=== PATIENT | male | born 1985 | race American Indian/Alaskan Native ===

== ENCOUNTER 2019-04-08 21:53 | Emergency (ER) | payer MEDICARE ==
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
[2019-04-08 22:20] VITALS: BP 126/86
[2019-04-08] MEDS ORDERED: XYLOCAINE 1% MPF 5 mL INFILTRATI ONE (23:49)
[2019-04-08] MEDS ORDERED: BOOSTRIX IM ONE (23:49)
[2019-04-08] MEDS ORDERED: NORCO 5/325 PO ONE (23:49)
--- NOTE | 2019-04-09 01:53 | XRay Report ---
Right hand, 2 views INDICATION: Pain following injury today FINDINGS: The joint space is maintained. There is no fracture or dislocation. No spurring or arthriti c change. No bone lesion or periostitis. No significant abnormality. IMPRESSION: Negative study Signer Name: Flavio Winters MD Signed: 04/09/2019 1:49 AM Workstation Name: [id number]
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
== END 2019-04-09 02:11 | disposition home or self-care (01) ==
LOC: ED 21:53
DX: S61.212A Laceration without foreign body of right middle finger without damage to nail, initial encounter (principal); J45.909 Unspecified asthma, uncomplicated; F17.200 Nicotine dependence, unspecified, uncomplicated; F12.90 Cannabis use, unspecified, uncomplicated; Z98.890 Other specified postprocedural states; Z79.899 Other long term (current) drug therapy; Z88.6 Allergy status to analgesic agent; Z88.8 Allergy status to other drugs, medicaments and biological substances; Y04.8XXA Assault by other bodily force, initial encounter; Y93.89 Activity, other specified; Y92.098 Other place in other non-institutional residence as the place of occurrence of the external cause; Y99.8 Other external cause status
CPT/HCPCS: 90471; 90715; 99283

== ENCOUNTER 2019-05-17 18:22 | Emergency (ER) | payer MEDICARE ==
[2019-05-17 18:58] VITALS: BP 109/77
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
== END 2019-05-17 20:30 | disposition left against medical advice (07) ==
LOC: ED 18:22
DX: R07.89 Other chest pain (principal); V49.40XD Driver injured in collision with unspecified motor vehicles in traffic accident, subsequent encounter
CPT/HCPCS: 93005; 93010

== ENCOUNTER 2019-07-02 15:38 | Emergency (ER) | payer MEDICARE ==
[2019-07-02 15:45] VITALS: BP 118/74
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
--- NOTE | 2019-07-02 17:28 | Vascular Lab Report ---
DUPLEX DOPPLER LOWER EXTREMITY VEINS, RIGHT INDICATION: swelling. Right lower extremity swelling for few days. History of HIV. TECHNIQUE: Duplex doppler imaging was performed through the veins of the right lower extremity using venous comp ression and other maneuvers. COMPARISON: No relevant prior imaging study available. FINDINGS: Right Common femoral vein: Negative. Right Superficial femoral vein: Negative. Right Popliteal vein: Negative. Right Calf veins: Negative. Additional findings: None.. IMPRESSION: 1. No sonographic evidence for DVT in the right lower extremity. Signer Name: Mehdi Gardner Signed: 07/02/2019 5:23 PM Workstation Name: [id number]
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
[2019-07-02] MEDS ORDERED: LIDOCAINE (2%) 20 MG/1 ML VIAL 20 ML MDV INFILTRATI ONE ×2 (17:59→18:02)
== END 2019-07-02 19:01 | disposition home or self-care (01) ==
LOC: ED 15:38
DX: T16.1XXA Foreign body in right ear, initial encounter (principal); L03.115 Cellulitis of right lower limb; I89.0 Lymphedema, not elsewhere classified; J45.909 Unspecified asthma, uncomplicated; Z79.899 Other long term (current) drug therapy; Z88.2 Allergy status to sulfonamides; Z88.0 Allergy status to penicillin; Z88.8 Allergy status to other drugs, medicaments and biological substances; Z88.6 Allergy status to analgesic agent; Z98.890 Other specified postprocedural states; X58.XXXA Exposure to other specified factors, initial encounter; Y93.89 Activity, other specified; Y92.89 Other specified places as the place of occurrence of the external cause; Y99.8 Other external cause status